=== PATIENT | male | born 2000 | race Caucasian/White ===

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

== ENCOUNTER 2018-04-25 16:31 | Emergency (ER) | payer OTHER | END 2018-04-25 19:55 | disposition home or self-care (01) | LOC: FTE 16:31 | DX: H60.501 Unspecified acute noninfective otitis externa, right ear (principal) | CPT/HCPCS: 99283; Z7502 ==